=== PATIENT | male | born 1990 | race Two or more races ===

== ENCOUNTER 2022-09-27 20:57 | Emergency (ER) | payer SELFPAY ==
[2022-09-27] MEDS ORDERED: Sodium Chloride 0.9% 1,000 ML IV ONE (21:52)
[2022-09-27] MEDS ORDERED: hydrOXYzine HCl 50 MG/ML SDV IM ONE (21:52)
[2022-09-27 22:02] LABS: CHLORIDE,CL 94 mmol/L (98-107); SODIUM,NA 136 mmol/L (136-145)
[2022-09-27 22:04] LABS: ANION GAP 16.8 meq/L (7-15); ESTIMATED GFR 143 mL/min (>=60)
[2022-09-27] MEDS ORDERED: NS + KCl 20mEq/L 1,000 ML IV SCH (22:15)
[2022-09-27] MEDS ORDERED: Potassium Chloride Riders 10 MEQ in Premix Bag 1 BAG IV ONE ×2 (22:26→23:26)
[2022-09-27] MEDS ORDERED: Ondansetron 4 MG/2 ML SDV IVPUSH PRN (22:48)
[2022-09-27] MEDS: LORazepam 2 MG/ML SDV IVPUSH PRN (22:54)
[2022-09-27 23:44] LABS: BARBITURATE SCREEN,URINE NEGATIVE (NEGATIVE); BENZODIAZEPINES SCREEN,URINE NEGATIVE (NEGATIVE); EDDP,URINE SCREEN NEGATIVE (NEGATIVE); TCA SCREEN,URINE NEGATIVE (NEGATIVE); THC SCREEN,URINE 50 NG/ML POSITIVE (NEGATIVE)
[2022-09-27 23:45] LABS: BUPRENORPHINE SCREEN,URINE NEGATIVE (NEGATIVE)
[2022-09-28] MEDS: Potassium Chloride Riders 10 MEQ in Premix Bag 1 BAG IV SCH ×2 (00:15→01:26)
[2022-09-28] MEDS: LORazepam 2 MG/ML SDV IVPUSH PRN ×3 (01:11→06:01)
[2022-09-28] MEDS: Sodium Chloride 0.9% 10 ML Syringe FLUSH PRN ×4 (01:14→06:01)
[2022-09-28 06:20] LABS: ANION GAP 14.5 meq/L (7-15)
[2022-09-28 06:34] LABS: CORONAVIRUS COVID-19 NAA NEGATIVE (NEGATIVE); RESPIRATORY SYNCYTIAL VIR NAA NEGATIVE (NEGATIVE)
== END 2022-09-28 07:21 | disposition home or self-care (01) ==
LOC: LL.ED 20:57
DX: E87.6 Hypokalemia (principal); F10.239 Alcohol dependence with withdrawal, unspecified; L70.9 Acne, unspecified; F17.210 Nicotine dependence, cigarettes, uncomplicated; Z88.0 Allergy status to penicillin; Z86.16 Personal history of COVID-19; Y90.0 Blood alcohol level of less than 20 mg/100 ml
CPT/HCPCS: 0241U; 36415; 71046; 80053; 80305-QW; 80307; 81003; 85025; 85379; 93005; 96361; 96365; 96372; 96375; 96376; 99284; 99285-25; J2060; J2405; J3410; J3480; J3490; J7030